=== PATIENT | female | born 1940 | race Caucasian/White ===

== ENCOUNTER 2021-01-04 12:35 | Observation (INO) | payer MEDICARE, BC ==
--- NOTE | 2021-01-04 13:24 | CT ---
Head CT Technique: Multiple axial sections through the brain were obtained. Intravenous contrast was not utilized. Reconstructed coronal and sagittal images were obtained. Comparison: No prior intracranial imaging is available. Findings: Ventricles along with basal cisterns and sulci over the convexities are mildly prominent. Mild areas of diminished density are noted within the periventricular white matter which most likely represents small vessel ischemic demyelination change. Very minimal areas of increased density are seen within the cortex within the frontal region which are felt compatible with very minimal parenchymal hemorrhages. No other areas of intracranial hemorrhage are seen. Bone window settings were reviewed. The visualized mastoid sinuses and visualized paranasal sinuses appear clear. Atherosclerotic calcification is noted within the carotid siphon. No acute calvarial finding is appreciated. Impression: 1. Very minimal cortical hemorrhages within the frontal regions. 2. Mild senescent change as noted above. 3. No other acute abnormality is appreciated. Diagnostic code #3
--- NOTE | 2021-01-04 14:16 | EDM.PDOC ---
ED HPI GENERAL MEDICAL PROBLEM - General Chief Complaint: Neuro Symptoms/Deficits Stated Complaint: [facility] Time Seen by Provider: 01/04/21 12:44 Source of Information: Reports: Patient, EMS, Family (), RN Notes Reviewed - History of Present Illness INITIAL COMMENTS - FREE TEXT/NARRATIVE: 80 yr old female with about 15 -20 minute episode of confusion while having lunch with her and friends. EMS was called. By the time they arrived her confusion completely resolved. There was no LOC. Her speech was clear but inappropriate. No facial droop or focal weakness. No recent fall or injury. No davis, nausea or vomiting. She has not been recently ill. Hx Htn and Gerd. No hx of prior stroke or TIA. - Related Data Allergies Allergy/AdvReac Type Severity Reaction Status Date / Time sucralfate [From Carafate] Allergy Cannot Verified 01/04/21 15:32 Remember venlafaxine Allergy Cannot Verified 01/04/21 15:32 Remember Home Meds: Home Meds Acetaminophen [Tylenol] 650 mg PO ASDIRECTED PRN 01/04/21 [History] Ascorbic Acid [Vitamin C] 500 mg PO DAILY 01/04/21 [History] Fluticasone Propionate [Flonase] 2 sprays INH DAILY 01/04/21 [History] LORazepam [Lorazepam] 0.5 mg PO DAILY PRN 01/04/21 [History] Levothyroxine [Synthroid] 50 mcg PO DAILY 01/04/21 [History] Multivitamin with Minerals [Multiple Vitamin] 1 tab PO DAILY 01/04/21 [History] Omeprazole Magnesium [Prilosec Otc] 20 mg PO BIDAC 01/04/21 [History] Potassium Chloride 20 meq PO DAILY 01/04/21 [History] amLODIPine [Norvasc] 5 mg PO DAILY 01/04/21 [History] buPROPion [Wellbutrin SR] 150 mg PO DAILY 01/04/21 [History] busPIRone [Buspar] 15 mg PO BID 01/04/21 [History] lisinopriL [Lisinopril] 40 mg PO DAILY 01/04/21 [History] Past Medical History HEENT History: Reports: Impaired Vision Cardiovascular History: Reports: Hypertension Gastrointestinal History: Reports: GERD Psychiatric History: Reports: Anxiety Endocrine/Metabolic History: Reports: Hypothyroidism - Past Surgical History GI Surgical History: Reports: Appendectomy Musculoskeletal Surgical History: Reports: Hip Replacement Social & Family History - Tobacco Use Tobacco Use Status *Q: Never Tobacco User - Caffeine Use Caffeine Use: Reports: Coffee - Recreational Drug Use Recreational Drug Use: No ED ROS GENERAL - Review of Systems Review Of Systems: See Below Constitutional: Denies: Fever, Chills, Diaphoresis HEENT: Reports: No Symptoms Respiratory: Denies: Shortness of Breath, Pleuritic Chest Pain Cardiovascular: Denies: Chest Pain GI/Abdominal: Denies: Abdominal Pain, Nausea, Vomiting Musculoskeletal: Reports: No Symptoms Skin: Denies: Rash Neurological: Reports: Other (confussion, gone). Denies: Numbness, Tingling, We akness ED EXAM, NEURO - Physical Exam Exam: See Below General Appearance: Alert, No Apparent Distress Eye Exam: Bilateral Eye: EOMI, PERRL Ears: Normal External Exam Throat/Mouth: Normal Inspection, Other (no facial droop) Head Exam: Atraumatic Neck: Supple Respiratory/Chest: No Respiratory Distress, Lungs Clear, Normal Breath Sounds Cardiovascular: Regular Rate, Rhythm GI/Abdominal: Soft, Non-Tender Neurological: Alert, No Motor/Sensory Deficits, Oriented x 3, Other (no drift, f nisa to nose testing normal) Extremities: Normal Inspection. No: Leg Pain, Increased Warmth, Redness Psychiatric: Normal Affect Skin Exam: Warm, Dry, Normal Color Course - Vital Signs Last Recorded V/S: Last Vital Signs Temp 96.4 F L 01/04/21 12:40 Pulse 67 01/04/21 12:40 Resp 16 01/04/21 12:40 BP 166/69 H 01/04/21 12:40 Pulse Ox 98 01/04/21 12:40 - Orders/Labs/Meds Labs: Laboratory Tests 01/04/21 01/04/21 Range/Units 12:49 12:49 WBC 4.23 (3.98-10.04) K/mm3 RBC 4.51 (3.98-5.22) M/mm3 Hgb 13.0 (11.2-15.7) gm/dl Hct 38.7 (34.1-44.9) % MCV 85.8 (79.4-94.8) fl MCH 28.8 (25.6-32.2) pg MCHC 33.6 (32.2-35.5) g/dl RDW Std Deviation 38.2 (36.4-46.3) fL Plt Count 229 (182-369) K/mm3 MPV 8.4 L (9.4-12.3) fl Neut % (Auto) 56.5 (34.0-71.1) % Lymph % (Auto) 32.9 (19.3-51.7) % [place] % (Auto) 9.0 (4.7-12.5) % Eos % (Auto) 0.9 (0.7-5.8) Baso % (Auto) 0.5 (0.1-1.2) % Neut # (Auto) 2.39 (1.56-6.13) K/mm3 Lymph # (Auto) 1.39 (1.18-3.74) K/mm3 [place] # (Auto) 0.38 H (0.24-0.36) K/mm3 Eos # (Auto) 0.04 (0.04-0.36) K/mm3 Baso # (Auto) 0.02 (0.01-0.08) K/mm3 Sodium 141 (136-145) mEq/L Potassium 3.9 (3.5-5.1) mEq/L Chloride 102 (98-107) mEq/L Carbon Dioxide 28 (21-32) mEq/L Anion Gap 14.9 (5-15) BUN 16 (7-18) mg/dL Creatinine 0.9 (0.55-1.02) mg/dL Est Cr Clr Drug Dosing 35.21 mL/min Estimated GFR (MDRD) > 60 (>60) mL/min BUN/Creatinine Ratio 17.8 (14-18) Glucose 124 H (83-115) mg/dL Calcium 9.0 (8.5-10.1) mg/dL Total Bilirubin 0.4 (0.2-1.0) mg/dL AST 36 (15-37) U/L ALT 25 (14-59) U/L Alkaline Phosphatase 54 (46-116) U/L Total Protein 7.2 (6.4-8.2) g/dl Albumin 4.0 (3.4-5.0) g/dl Globulin 3.2 gm/dL Albumin/Globulin Ratio 1.3 (1-2) - Re-Assessments/Exams Free Text/Narrative Re-Assessment/Exam: 01/04/21 16:[address] showed what is reported as minimal cortical hemorrhages within the frontal regions. See Radiology report for details. I have discussed this with Dr Waters, Neurologist bessemer converter blower with [facility] [employer]. He has looked at the CT. He does not see anything alarming to him. He advises medical admission for observation, repeat CT tomorrow. Of not she and her are from [place], traveling. She does have hx of Htn. As noted in HPI no hx of recent fall or blow to the head. No hx of prior stroke or TIA. She is not on any type of blood thinner medication. Departure - Departure Time of Disposition: 15:35 Disposition: Refer to Observation Condition: Fair Clinical Impression: TIA (transient ischemic attack), Cortical hemorrhage - Discharge Information Sepsis Event Note (ED) - Evaluation Sepsis Screening Result: No Definite Risk - Focused Exam Vital Signs: Vital Signs Temp Pulse Resp BP Pulse Ox 01/04/21 12:40 96.4 F L 67 16 166/69 H 98 ED Communication - Discussed Case With (1) Discussed Case With (1): Admitting Provider (Dr Garcia, decision to admit at about 15:35.)
[2021-01-04] MEDS ORDERED: LORazepam 0.5 MG Tab PO PRN (17:26)
--- NOTE | 2021-01-04 17:26 | PCM.HP.2 ---
H&P History of Present Illness - General Date of Service: 01/04/21 Admit Problem/Dx: Admission Diagnosis/Problem Admission Diagnosis/Problem Confusion Source of Information: Patient, Provider - History of Present Illness Initial Comments - Free Text/Narative: 80 year old female presented after transient confusion while eating lunch in [place], [place]. She and her libertarian were on their way to [place], [place]. They went to lunch at a restaurant when she became confused, and was unaware of her surroundings. A Ct of the head was performed that was abnormal per the radiologist of record. The imaging was also reviewed by a neurologist composition instructor in [place]. The findings mentioned in the CT of the head were not noted by the neurologist. The patient will be admitted for TIA work to include an MRI of the brain. Neurochecks will be performed as well. Onset of Symptoms: Reports: Today Duration of Symptoms: Reports: Hour(s): Severity: Moderate Improves with: Reports: None Worsens with: Reports: None Associated Symptoms: Reports: Confusion - Related Data Allergies/Adverse Reactions: Allergies Allergy/AdvReac Type Severity Reaction Status Date / Time sucralfate [From Carafate] Allergy Cannot Verified 01/04/21 15:32 Remember venlafaxine Allergy Cannot Verified 01/04/21 15:32 Remember Home Medications: Home Meds Ascorbic Acid [Vitamin C] 500 mg PO DAILY 01/04/21 [History] Fluticasone Propionate [Flonase] 2 sprays INH DAILY 01/04/21 [History] LORazepam [Lorazepam] 0.5 mg PO DAILY PRN 01/04/21 [History] Levothyroxine [Synthroid] 50 mcg PO DAILY 01/04/21 [History] Multivitamin with Minerals [Multiple Vitamin] 2 tab PO BID 01/04/21 [History] Omeprazole Magnesium [Prilosec Otc] 20 mg PO BIDAC 01/04/21 [History] Potassium Chloride 20 meq PO DAILY 01/04/21 [History] amLODIPine [Norvasc] 5 mg PO DAILY 01/04/21 [History] buPROPion [Wellbutrin SR] 150 mg PO DAILY 01/04/21 [History] busPIRone [Buspar] 15 mg PO BID 01/04/21 [History] lisinopriL [Lisinopril] 40 mg PO DAILY 01/04/21 [History] Past Medical History HEENT History: Reports: Impaired Vision Cardiovascular History: Reports: Hypertension Gastrointestinal History: Reports: GERD Psychiatric History: Reports: Anxiety Endocrine/Metabolic History: Reports: Hypothyroidism - Past Surgical History GI Surgical History: Reports: Appendectomy Musculoskeletal Surgical History: Reports: Hip Replacement Social & Family History - Tobacco Use Tobacco Use Status *Q: Former Tobacco User Used Tobacco, but Quit: Yes Month/Year Tobacco Last Used: 55 years ago Second Hand Smoke Exposure: No - Caffeine Use Caffeine Use: Reports: Coffee, Soda - Alcohol Use Days Per Week of Alcohol Use: 5 Number of Drinks Per Day: 3 Total Drinks Per Week: 15 Date of Last Drink: 01/03/21 Time of Last Drink: 18:30 - Recreational Drug Use Recreational Drug Use: No H&P Review of Systems - Review of Systems: Review Of Systems: See Below General: Reports: Weakness HEENT: Reports: No Symptoms Pulmonary: Reports: No Symptoms Cardiovascular: Reports: No Symptoms Gastrointestinal: Reports: No Symptoms Genitourinary: Reports: No Symptoms Musculoskeletal: Reports: No Symptoms Skin: Reports: No Symptoms Psychiatric: Reports: No Symptoms Neurological: Reports: Confusion Hematologic/Lymphatic: Reports: No Symptoms Immunologic: Reports: No Symptoms Exam - Exam Exam: See Below - Vital Signs Vital Signs: Last Vital Signs Temp 36.7 C 01/04/21 16:29 Pulse 59 L 01/04/21 16:36 Resp 12 01/04/21 16:36 BP 143/52 H 01/04/21 16:36 Pulse Ox 100 01/04/21 16:36 Weight: 52.753 kg - Exam Quality Assessment: Supplemental Oxygen, DVT Prophylaxis General: Alert, Oriented, Cooperative HEENT: Nares Patent, Normal Nasal Septum, Pupils Equal, Pupils Reactive Neck: Trachea Midline Lungs: Normal Respiratory Effort Cardiovascular: Regular Rate, Regular Rhythm GI/Abdominal Exam: Normal Bowel Sounds, Soft, Non-Tender, No Organomegaly (Female) Exam: Deferred Rectal (Female) Exam: Deferred Back Exam: Normal Inspection Extremities: Normal Inspection, Normal Capillary Refill Peripheral Pulses: 2+: Radial (L), Radial (R) Skin: Warm, Dry, Intact Neurological: Cranial Nerves Intact, Normal Speech Neuro Extensive - Mental Status: Alert, Oriented x3, Normal Mood/Affect, Normal Cognition Neuro Extensive - Motor, Sensory, Reflexes: CN II-XII Intact Psychiatric: Alert - Patient Data Lab Results Last 24 hrs: Laboratory Results - last 24 hr 01/04/21 01/04/21 Range/Units 12:49 12:49 WBC 4.23 (3.98-10.04) K/mm3 RBC 4.51 (3.98-5.22) M/mm3 Hgb 13.0 (11.2-15.7) gm/dl Hct 38.7 (34.1-44.9) % MCV 85.8 (79.4-94.8) fl MCH 28.8 (25.6-32.2) pg MCHC 33.6 (32.2-35.5) g/dl RDW Std Deviation 38.2 (36.4-46.3) fL Plt Count 229 (182-369) K/mm3 MPV 8.4 L (9.4-12.3) fl Neut % (Auto) 56.5 (34.0-71.1) % Lymph % (Auto) 32.9 (19.3-51.7) % [place] % (Auto) 9.0 (4.7-12.5) % Eos % (Auto) 0.9 (0.7-5.8) Baso % (Auto) 0.5 (0.1-1.2) % Neut # (Auto) 2.39 (1.56-6.13) K/mm3 Lymph # (Auto) 1.39 (1.18-3.74) K/mm3 [place] # (Auto) 0.38 H (0.24-0.36) K/mm3 Eos # (Auto) 0.04 (0.04-0.36) K/mm3 Baso # (Auto) 0.02 (0.01-0.08) K/mm3 Sodium 141 (136-145) mEq/L Potassium 3.9 (3.5-5.1) mEq/L Chloride 102 (98-107) mEq/L Carbon Dioxide 28 (21-32) mEq/L Anion Gap 14.9 (5-15) BUN 16 (7-18) mg/dL Creatinine 0.9 (0.55-1.02) mg/dL Est Cr Clr Drug Dosing 35.21 mL/min Estimated GFR (MDRD) > 60 (>60) mL/min BUN/Creatinine Ratio 17.8 (14-18) Glucose 124 H (83-115) mg/dL Calcium 9.0 (8.5-10.1) mg/dL Total Bilirubin 0.4 (0.2-1.0) mg/dL AST 36 (15-37) U/L ALT 25 (14-59) U/L Alkaline Phosphatase 54 (46-116) U/L Total Protein 7.2 (6.4-8.2) g/dl Albumin 4.0 (3.4-5.0) g/dl Globulin 3.2 gm/dL Albumin/Globulin Ratio 1.3 (1-2) Result Diagrams: 01/05/21 04:45 01/05/21 04:45 Sepsis Event Note - Evaluation Sepsis Screening Result: No Definite Risk - Focused Exam Vital Signs: Vital Signs Temp Temp Pulse Pulse Resp BP BP 01/04/21 16:36 59 L 12 143/52 H 01/04/21 16:29 36.7 C 59 L 16 144/52 H 01/04/21 16:20 58 L 125/50 L 01/04/21 16:00 58 L 13 140/50 L 01/04/21 15:00 57 L 14 125/47 L 01/04/21 13:15 36.3 C 63 139/50 L 01/04/21 12:44 64 12 166/69 H 01/04/21 12:40 35.8 C L 67 16 166/69 H Pulse Ox 01/04/21 16:36 100 01/04/21 16:29 95 01/04/21 16:20 98 01/04/21 16:00 98 01/04/21 15:00 98 01/04/21 13:15 100 01/04/21 12:44 98 01/04/21 12:40 98 Problem List Initiated/Reviewed/Updated: Yes Orders Last 24hrs: Active Orders 24 hr Category Date Time Status Patient Status [ADT] Routine ADT 01/04/21 15:54 Active Assessment/Plan Comment:: Impression: TIA, neurochecks WNL after transient confusion Chronic ETOH, 3 glasses a night HTN Hypothyroid GERD Plan: Neuro labs eg TSH, Vitamin B12, Vitamin D, Folic acid MRI of Brain 2D echo FLP, CMP Heart Healthy diet Start statin; ASA 325 mg daily DC will need PCP follow up 1-2 weeks - Mortality Measure Prognosis:: Good
[2021-01-04] MEDS ORDERED: Enoxaparin 40 MG/0.4 ML Syringe SUBCUT SCH (18:00)
[2021-01-04] MEDS ORDERED: busPIRone 15 MG Tab PO ONE (21:00)
[2021-01-05 06:55] LABS: HEMOGLOBIN A1C 5.5 %
[2021-01-05 07:43] LABS: VITAMIN D,25-HYDROXY 42.9 ng/ml (30.0-100.0)
--- NOTE | 2021-01-05 08:52 | MR ---
MRI brain Technique: T1 sagittal; T2, T2 FLAIR, diffusion and T1 axial; T1 FLAIR coronal images were also obtained through the brain. Gradient echo axial and coronal images were also obtained. Comparison: Prior head CT study of 01/04/21. Findings: Ventricles along with basal cisterns and sulci over convexities are mildly prominent. Scattered areas of increased signal are seen within the periventricular and subcortical white matter which most likely represent small vessel ischemic demyelination change. Minimal low signal is seen within the frontal region presumably due to small previous hemorrhage on the FLAIR sequence. No other abnormal signal is seen within the brain parenchyma. Normal signal void is seen within the major cerebral arteries within the skull base. No acute diffusion abnormalities are appreciated. Impression: 1. Low signal on the FLAIR sequence within the cortical area of the right frontal region which most likely represents minimal change from previous small hemorrhage. No change is seen from prior head CT exam. 2. Small vessel ischemic demyelination change believed to be present. 3. No acute diffusion abnormalities are appreciated. Diagnostic code #3
[2021-01-05] MEDS ORDERED: Levothyroxine 50 MCG Tab PO SCH (09:00)
[2021-01-05] MEDS ORDERED: Lisinopril 20 MG Tab PO SCH (09:00)
[2021-01-05] MEDS ORDERED: busPIRone 15 MG Tab PO SCH (09:00)
[2021-01-05] MEDS ORDERED: Fluticasone Propionate Nasal Spray 16 GM Bottle NASBOTH SCH (09:00)
[2021-01-05] MEDS ORDERED: buPROPion 150 MG Tab.SR PO SCH (09:00)
[2021-01-05] MEDS ORDERED: amLODIPine 5 MG Tab PO SCH (09:00)
--- NOTE | 2021-01-05 09:27 | PCM.DCSUM1 ---
Discharge Summary - Hospital Course HPI Initial Comments: 80 year old female presented after transient confusion while eating lunch in [place], [place]. She and her green party were on their way to [place], [place]. They went to lunch at a restaurant when she became confused, and was unaware of her surroundings. A CT of the head was performed that was abnormal per the radiologist of record. The imaging was also reviewed by a neurologist controls designer in [place]. The findings mentioned in the CT of the head were not noted by the neurologist. The patient will be admitted for TIA work to include an MRI of the brain. Neurochecks will be performed as well. Diagnosis: Stroke: No - Discharge Data Discharge Date: 01/05/21 Discharge Disposition: Home, Self-Care 01 Condition: Good - Referral to Home Health Primary Care Physician: PCP Not In Area - Patient Summary/Data Consults: Consultations 01/05/21 09:00 Consult to Physical Therapy [PT Evaluation and Treatment] [CONS] Routine 01/05/21 10:00 Consult to Occupational Therapy [OT Evaluation and Treatment] [CONS] Routine Hospital Course: 80 year old female that presented after resolution of her confusion that occurred while at lunch. Hospital course was a CVA work up, she had multiple scans including an MRI that was unchanged from a previous study. There was no signs of either ischemia or hemorrhage. A 2D echo was also performed. Multiple labs were also obtained. The patient will be maintained on her HTN meds, as well as started on ASA 325 mg daily, and Lipitor 20 mg daily. FLP, CMP will need to be checked in 90 days. If the patient is unable to tolerate a full dose ASA, may decrease to 81 mg daily. Consults were PT/OT which documented an unremarkable assessment. 2D echo documented preserved LVEF; mildly dilated atria; mild MR. Patient has an affinity for wine drinking tree glasses every night, this was addressed during her hospitalization. Suggest an occasional glass not every evening. PCP follow up is needed 1-2 weeks after DC; she was encouraged to pecan picker her prescriptions before leaving for [place]. - Patient Instructions Diet: Heart Healthy Diet Activity: As Tolerated Driving: Do Not Drive Showering/Bathing: May Shower Notify Provider of: Nausea and/or Vomiting - Discharge Plan *PRESCRIPTION DRUG MONITORING PROGRAM REVIEWED*: Not Applicable *COPY OF PRESCRIPTION DRUG MONITORING REPORT IN PATIENT AAKASH: Not Applicable Prescriptions/Med Rec: Aspirin [Ecotrin EC] 325 mg PO DAILY #100 tab.ec atorvaSTATin [Lipitor] 20 mg PO BEDTIME #30 tablet Home Medications: Home Meds Ascorbic Acid [Vitamin C] 500 mg PO DAILY 01/04/21 [History] Fluticasone Propionate [Flonase] 2 sprays INH DAILY 01/04/21 [History] LORazepam [Lorazepam] 0.5 mg PO DAILY PRN 01/04/21 [History] Levothyroxine [Synthroid] 50 mcg PO DAILY 01/04/21 [History] Multivitamin with Minerals [Multiple Vitamin] 2 tab PO BID 01/04/21 [History] Omeprazole Magnesium [Prilosec Otc] 20 mg PO BIDAC 01/04/21 [History] Potassium Chloride 20 meq PO DAILY 01/04/21 [History] amLODIPine [Norvasc] 5 mg PO DAILY 01/04/21 [History] buPROPion [Wellbutrin SR] 150 mg PO DAILY 01/04/21 [History] busPIRone [Buspar] 15 mg PO BID 01/04/21 [History] lisinopriL [Lisinopril] 40 mg PO DAILY 01/04/21 [History] Aspirin [Ecotrin EC] 325 mg PO DAILY #100 tab.ec 01/05/21 [Rx] atorvaSTATin [Lipitor] 20 mg PO BEDTIME #30 tablet 01/05/21 [Rx] Oxygen Therapy Mode: Room Air Patient Handouts: Transient Ischemic Attack, [id number] Forms: ED Department Discharge Referrals: Trinity Casey [Other] - 01/09/21 12:30 pm - Discharge Summary/Plan Comment DC Time >30 min.: No Discharge Summary/Plan Comment: SEE HOSPITAL COURSE SUMMARY FOR ADDITIONAL COMMENTS Impression: TIA, neurochecks WNL after transient confusion Chronic ETOH, 3 glasses a night HTN Hypothyroid GERD Plan: Neuro labs eg TSH, Vitamin B12, Vitamin D, Folic acid (Results are pending, most are sent to an outside lab) MRI of Brain 2D echo FLP, CMP Heart Healthy diet Start statin; ASA 325 mg daily DC will need PCP follow up 1-2 weeks - General Info Date of Service: 01/04/21 Functional Status: Reports: Pain Controlled, Tolerating Diet, Ambulating, Urinating - Review of Systems General: Reports: No Symptoms HEENT: Reports: No Symptoms Pulmonary: Reports: No Symptoms Cardiovascular: Reports: No Symptoms Gastrointestinal: Reports: No Symptoms Genitourinary: Reports: No Symptoms Musculoskeletal: Reports: No Symptoms Skin: Reports: No Symptoms Neurological: Reports: No Symptoms Psychiatric: Reports: No Symptoms - Patient Data Vitals - Most Recent: Last Vital Signs Temp 36.6 C 01/05/21 04:03 Pulse 65 01/05/21 04:03 Resp 18 01/05/21 04:03 BP 152/69 H 01/05/21 04:03 Pulse Ox 97 01/05/21 04:03 Weight - Most Recent: 51.256 kg I&O - Last 24 hours: Intake & Output 01/04/21 01/05/21 01/05/21 22:59 06:59 14:59 Intake Total 350 Output Total 400 900 Balance -400 -550 Lab Results - Last 24 hrs: Laboratory Results - last 24 hr 01/04/21 01/04/21 01/04/21 Range/Units 12:49 12:49 17:55 WBC 4.23 (3.98-10.04) K/mm3 RBC 4.51 (3.98-5.22) M/mm3 Hgb 13.0 (11.2-15.7) gm/dl Hct 38.7 (34.1-44.9) % MCV 85.8 (79.4-94.8) fl MCH 28.8 (25.6-32.2) pg MCHC 33.6 (32.2-35.5) g/dl RDW Std Deviation 38.2 (36.4-46.3) fL Plt Count 229 (182-369) K/mm3 MPV 8.4 L (9.4-12.3) fl Neut % (Auto) 56.5 (34.0-71.1) % Lymph % (Auto) 32.9 (19.3-51.7) % [place] % (Auto) 9.0 (4.7-12.5) % Eos % (Auto) 0.9 (0.7-5.8) Baso % (Auto) 0.5 (0.1-1.2) % Neut # (Auto) 2.39 (1.56-6.13) K/mm3 Lymph # (Auto) 1.39 (1.18-3.74) K/mm3 [place] # (Auto) 0.38 H (0.24-0.36) K/mm3 Eos # (Auto) 0.04 (0.04-0.36) K/mm3 Baso # (Auto) 0.02 (0.01-0.08) K/mm3 Sodium 141 (136-145) mEq/L Potassium 3.9 (3.5-5.1) mEq/L Chloride 102 (98-107) mEq/L Carbon Dioxide 28 (21-32) mEq/L Anion Gap 14.9 (5-15) BUN 16 (7-18) mg/dL Creatinine 0.9 (0.55-1.02) mg/dL Est Cr Clr Drug Dosing 35.21 mL/min Estimated GFR (MDRD) > 60 (>60) mL/min BUN/Creatinine Ratio 17.8 (14-18) Glucose 124 H (83-115) mg/dL Hemoglobin A1c ( - 5.6) % Calcium 9.0 (8.5-10.1) mg/dL Magnesium (1.8-2.4) mg/dl Total Bilirubin 0.4 (0.2-1.0) mg/dL AST 36 (15-37) U/L ALT 25 (14-59) U/L Alkaline Phosphatase 54 (46-116) U/L Total Protein 7.2 (6.4-8.2) g/dl Albumin 4.0 (3.4-5.0) g/dl Globulin 3.2 gm/dL Albumin/Globulin Ratio 1.3 (1-2) Triglycerides (<150) mg/dL Cholesterol (<200) mg/dL LDL Cholesterol Direct (<100) mg/dL HDL Cholesterol (40-59) mg/dL Vitamin B12 (193-986) pg/ml Vitamin D 25-Hydroxy (30.0-100.0) ng/ml Folate (8.6-58.9) ng/mL TSH 3rd Generation (0.358-3.74) uIU/mL SARS-CoV-2 RNA (QUEENIE) Negative (NEGATIVE) 01/05/21 01/05/21 01/05/21 Range/Units 04:45 04:45 04:45 WBC 3.86 L (3.98-10.04) K/mm3 RBC 4.58 (3.98-5.22) M/mm3 Hgb 13.2 (11.2-15.7) gm/dl Hct 39.5 (34.1-44.9) % MCV 86.2 (79.4-94.8) fl MCH 28.8 (25.6-32.2) pg MCHC 33.4 (32.2-35.5) g/dl RDW Std Deviation 39.7 (36.4-46.3) fL Plt Count 232 (182-369) K/mm3 MPV 8.9 L (9.4-12.3) fl Neut % (Auto) 61.5 (34.0-71.1) % Lymph % (Auto) 27.7 (19.3-51.7) % [place] % (Auto) 8.5 (4.7-12.5) % Eos % (Auto) 1.0 (0.7-5.8) Baso % (Auto) 1.0 (0.1-1.2) % Neut # (Auto) 2.37 (1.56-6.13) K/mm3 Lymph # (Auto) 1.07 L (1.18-3.74) K/mm3 [place] # (Auto) 0.33 (0.24-0.36) K/mm3 Eos # (Auto) 0.04 (0.04-0.36) K/mm3 Baso # (Auto) 0.04 (0.01-0.08) K/mm3 Sodium 144 (136-145) mEq/L Potassium 3.8 (3.5-5.1) mEq/L Chloride 108 H (98-107) mEq/L Carbon Dioxide 26 (21-32) mEq/L Anion Gap 13.8 (5-15) BUN 12 (7-18) mg/dL Creatinine 0.9 (0.55-1.02) mg/dL Est Cr Clr Drug Dosing 35.21 mL/min Estimated GFR (MDRD) > 60 (>60) mL/min BUN/Creatinine Ratio 13.3 L (14-18) Glucose 92 (83-115) mg/dL Hemoglobin A1c ( - 5.6) % Calcium 8.8 (8.5-10.1) mg/dL Magnesium 2.3 (1.8-2.4) mg/dl Total Bilirubin (0.2-1.0) mg/dL AST (15-37) U/L ALT (14-59) U/L Alkaline Phosphatase (46-116) U/L Total Protein (6.4-8.2) g/dl Albumin (3.4-5.0) g/dl Globulin gm/dL Albumin/Globulin Ratio (1-2) Triglycerides 90 (<150) mg/dL Cholesterol 204 H (<200) mg/dL LDL Cholesterol Direct 109 H* (<100) mg/dL HDL Cholesterol 77.0 H (40-59) mg/dL Vitamin B12 597 (193-986) pg/ml Vitamin D 25-Hydroxy 42.9 (30.0-100.0) ng/ml Folate 51.3 (8.6-58.9) ng/mL TSH 3rd Generation 1.541 (0.358-3.74) uIU/mL SARS-CoV-2 RNA (QUEENIE) (NEGATIVE) 01/05/21 Range/Units 04:45 WBC (3.98-10.04) K/mm3 RBC (3.98-5.22) M/mm3 Hgb (11.2-15.7) gm/dl Hct (34.1-44.9) % MCV (79.4-94.8) fl MCH (25.6-32.2) pg MCHC (32.2-35.5) g/dl RDW Std Deviation (36.4-46.3) fL Plt Count (182-369) K/mm3 MPV (9.4-12.3) fl Neut % (Auto) (34.0-71.1) % Lymph % (Auto) (19.3-51.7) % [place] % (Auto) (4.7-12.5) % Eos % (Auto) (0.7-5.8) Baso % (Auto) (0.1-1.2) % Neut # (Auto) (1.56-6.13) K/mm3 Lymph # (Auto) (1.18-3.74) K/mm3 [place] # (Auto) (0.24-0.36) K/mm3 Eos # (Auto) (0.04-0.36) K/mm3 Baso # (Auto) (0.01-0.08) K/mm3 Sodium (136-145) mEq/L Potassium (3.5-5.1) mEq/L Chloride (98-107) mEq/L Carbon Dioxide (21-32) mEq/L Anion Gap (5-15) BUN (7-18) mg/dL Creatinine (0.55-1.02) mg/dL Est Cr Clr Drug Dosing mL/min Estimated GFR (MDRD) (>60) mL/min BUN/Creatinine Ratio (14-18) Glucose (83-115) mg/dL Hemoglobin A1c 5.5 ( - 5.6) % Calcium (8.5-10.1) mg/dL Magnesium (1.8-2.4) mg/dl Total Bilirubin (0.2-1.0) mg/dL AST (15-37) U/L ALT (14-59) U/L Alkaline Phosphatase (46-116) U/L Total Protein (6.4-8.2) g/dl Albumin (3.4-5.0) g/dl Globulin gm/dL Albumin/Globulin Ratio (1-2) Triglycerides (<150) mg/dL Cholesterol (<200) mg/dL LDL Cholesterol Direct (<100) mg/dL HDL Cholesterol (40-59) mg/dL Vitamin B12 (193-986) pg/ml Vitamin D 25-Hydroxy (30.0-100.0) ng/ml Folate (8.6-58.9) ng/mL TSH 3rd Generation (0.358-3.74) uIU/mL SARS-CoV-2 RNA (QUEENIE) (NEGATIVE) - Exam Quality Assessment: Reports: DVT Prophylaxis General: Reports: Alert, Oriented, Cooperative, No Acute Distress HEENT: Reports: Pupils Equal, Pupils Reactive, EOMI Neck: Reports: Trachea Midline, No JVD Lungs: Reports: Clear to Auscultation, Normal Respiratory Effort Cardiovascular: Reports: Regular Rate, Regular Rhythm GI/Abdominal Exam: Normal Bowel Sounds, Soft, Non-Tender (Female) Exam: Deferred Rectal (Female) Exam: Deferred Back Exam: Reports: Normal Inspection, Full Range of Motion Extremities: Normal Inspection, Normal Range of Motion, Non-Tender Skin: Reports: Warm Neurological: Reports: No New Focal Deficit Psy/Mental Status: Reports: Alert, Normal Affect, Normal Mood
[2021-01-05] MEDS ORDERED: Aspirin 325 MG Tab.EC PO SCH (09:30)
[2021-01-05] MEDS ORDERED: atorvaSTATin 20 MG Tab PO SCH (21:00)
== END 2021-01-05 13:15 | disposition home or self-care (01) ==
LOC: JD.ED 12:35 → JD.MS 15:54
PROVIDERS: ADMIT Internal Medicine Cardiovascular Disease; ATTEND Internal Medicine Cardiovascular Disease
DX: G45.9 Transient cerebral ischemic attack, unspecified (principal); I61.1 Nontraumatic intracerebral hemorrhage in hemisphere, cortical; I10 Essential (primary) hypertension; E03.9 Hypothyroidism, unspecified; K21.9 Gastro-esophageal reflux disease without esophagitis; Z20.822 Contact with and (suspected) exposure to COVID-19; Z88.8 Allergy status to other drugs, medicaments and biological substances; Z79.82 Long term (current) use of aspirin; Z79.890 Hormone replacement therapy; Z79.899 Other long term (current) drug therapy; Z87.891 Personal history of nicotine dependence; Z72.89 Other problems related to lifestyle; Z98.890 Other specified postprocedural states
CPT/HCPCS: 36415; 70450; 70551; 80048; 80053; 80061; 82306; 82607; 82746; 83036; 83735; 84443; 85025; 93306; 96372; 97161; 97165; 99285; A9270; G0378; J1650; U0002; 99217; 99219; 99283